=== PATIENT | male | born 1975 | race Caucasian/White ===

== ENCOUNTER 2024-02-15 07:07 | Emergency (ER) | payer OTHER ==
[~2024-02-15] VITALS: Ht 175.3 cm; Wt 103.1 kg
[2024-02-15 07:32] VITALS: BP 136/95; PULSE 75; RESP 16; TEMP 97.2; O2SAT 95
[2024-02-15] MEDS: KETOROLAC TROMETH 60MG/2ML VIAL IM ONE (07:43)
[2024-02-15] MEDS ORDERED: IBUP-1456 PO (08:05)
[2024-02-15] MEDS ORDERED: METH-1182 PO (08:05)
== END 2024-02-15 08:16 | disposition home or self-care (01) ==
LOC: ER 07:07
DX: M51.37 Other intervertebral disc degeneration, lumbosacral region (principal); M54.16 Radiculopathy, lumbar region; G89.29 Other chronic pain; M54.50 Low back pain, unspecified; Z79.1 Long term (current) use of non-steroidal anti-inflammatories (NSAID)
CPT/HCPCS: 72100; 96372; 99283; J1885